=== PATIENT | female | born 1990 | race Caucasian/White ===

== ENCOUNTER 2017-10-24 18:52 | Emergency (ER) | payer OTHER ==
[2017-10-24 20:43] LABS: Absolute Lymphocytes (CBC) 1.5 K/uL (0.7-4.9); Absolute Monocytes 0.5 K/uL (0.1-1.3); Absolute Neutrophil 4.3 K/uL (1.8-8.0); Basophils % 0.4 % (0-1.3); Eosinophils % 1.3 % (0-4.4); Hematocrit 42.2 % (36.0-45.0); MCH 31.9 pg (27.0-35.0); MCV 91.5 fL (80-100); MPV 9.2 fL (7.6-11.3); Monocytes % 7.5 % (3.3-12.3); RBC Red Blood Cell Count 4.61 M/uL (3.86-4.86)
[2017-10-24 20:51] LABS: Potassium 3.6 mEq/L (3.6-5.0)
[2017-10-24 20:57] LABS: Albumin 4.5 g/dL (3.2-5.5); Bilirubin Direct 0.1 mg/dL (0-0.2); Bilirubin Total 0.9 mg/dL (0.3-1.2); Protein, Total 8.3 g/dL (6.0-8.3)
[2017-10-24] MEDS ORDERED: NA CHLORIDE 0.9% 1,000 ML ONE (21:21)
[2017-10-24] MEDS ORDERED: PROMETHAZINE 25 MG/ML VIAL ONE (21:21)
[2017-10-24 21:37] LABS: Urine Blood TRACE (NEG); Urine Glucose NEGATIVE (NEG); Urine Protein 1+ (NEG)
[2017-10-24 21:40] LABS: Urine Bacteria <20 /HPF (<20); Urine Culture Reflex Order NOT NEEDED; Urine Mucus 2+ /HPF (NONE SEEN); Urine RBC <5 /HPF (NONE SEEN)
[2017-10-24] MEDS ORDERED: LIDOCAINE VISCOUS 2% SOLN 15 ML UDC ONE (22:06)
[2017-10-24] MEDS ORDERED: MAGNES/ALUMIN/SIMET 30ML UCUP ONE (22:06)
[2017-10-24] MEDS ORDERED: SUCRALFATE 1 GM TABLET ONE (22:12)
[2017-10-24] MEDS ORDERED: DICYCLOMINE HCL 10 MG CAP ONE (22:12)
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
--- NOTE | 2017-10-24 23:16 | EDPHYS ---
Physician Documentation [facility] Name: Tereza Loza Age: 27 yrs Sex: Female : 1990 Arrival Date: 10/24/2017 Time: 18:55 Bed 18 Private MD: ED Physician Michael Serna HPI: 10/24 19:43 This 27 yrs old Female presents to ER via Ambulatory with complaints of snw Vomiting. 19:43 The patient presents to the emergency department with nausea, vomiting. Onset: The snw symptoms/episode began/occurred suddenly, 4 day(s) ago, and became persistent. Possible causes: flare up of bowel problem, gastritis. The symptoms are aggravated by nothing. Associated signs and symptoms: Pertinent positives: nausea, vomiting. Severity of symptoms: At their worst the symptoms were moderate. The patient has experienced a previous episode, but today's symptoms are worse. It is unknown whether or not the patient has recently seen a physician. 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 - Social history:: Smoking status: Patient/guardian denies using tobacco. ROS: 19:42 Constitutional: Negative for fever, chills, and weight loss, Eyes: Negative for injury, snw pain, redness, and discharge, ENT: Negative for injury, pain, and discharge, Neck: Negative for injury, pain, and swelling, Cardiovascular: Negative for chest pain, palpitations, and edema, Respiratory: Negative for shortness of breath, cough, wheezing, and pleuritic chest pain, Abdomen/GI: positive for epigastric pain, nausea, vomiting, no diarrhea or constipation, Back: Negative for injury and pain, : Negative for injury, bleeding, discharge, and swelling, MS/Extremity: Negative for injury and deformity, Skin: Negative for injury, rash, and discoloration, Psych: Negative for depression, anxiety, suicide ideation, homicidal ideation, and hallucinations. 19:42 Neuro: Positive for dizziness. Exam: 19:41 Constitutional: This is a well developed, well nourished patient who is awake, alert, snw and in no acute distress. Head/Face: Normocephalic, atraumatic. Eyes: Pupils equal round and reactive to light, extra-ocular motions intact. Lids and lashes normal. Conjunctiva and sclera are non-icteric and not injected. Cornea within normal limits. Periorbital areas with no swelling, redness, or edema. ENT: Nares patent. No nasal discharge, no septal abnormalities noted. Tympanic membranes are normal and external auditory canals are clear. Oropharynx with no redness, swelling, or masses, exudates, or evidence of obstruction, uvula midline. Mucous membranes moist. Neck: Trachea midline, no thyromegaly or masses palpated, and no cervical lymphadenopathy. Supple, full range of motion without nuchal rigidity, or vertebral point tenderness. No Meningismus. Chest/axilla: Normal chest wall appearance and motion. Nontender with no deformity. No lesions are appreciated. Cardiovascular: Regular rate and rhythm with a normal S1 and S2. No gallops, murmurs, or rubs. Normal PMI, no JVD. No pulse deficits. Respiratory: Lungs have equal breath sounds bilaterally, clear to auscultation and percussion. No rales, rhonchi or wheezes noted. No increased work of breathing, no retractions or nasal flaring. Back: No spinal tenderness. No costovertebral tenderness. Full range of motion. Skin: Warm, dry with normal turgor. Normal color with no rashes, no lesions, and no evidence of cellulitis. MS/ Extremity: Pulses equal, no cyanosis. Neurovascular intact. Full, normal range of motion. Neuro: Awake and alert, GCS 15, oriented to person, place, time, and situation. Cranial nerves II-XII grossly intact. Motor strength 5/5 in all extremities. Sensory grossly intact. Cerebellar exam normal. Normal gait. 19:41 Abdomen/GI: Inspection: abdomen appears normal, Bowel sounds: normal, Palpation: mild abdominal tenderness, in the epigastric area. Vital Signs: 19:12 BP 137 / 97; Pulse 81; Resp 16; Temp 98; Pulse Ox 98% on R/A; Weight 70.31 kg (R); ak1 Height 5 ft. 5 in. (165.10 cm) (R); Pain 0/10; 21:30 BP 133 / 82; Pulse 101; Resp 18; Pulse Ox 99% on R/A; aj1 22:16 BP 139 / 99; Pulse 73; Resp 18; Pulse Ox 99% ; aj1 22:23 BP 119 / 93; Pulse 70; Resp 16; Temp 98.2; Pulse Ox 100% on R/A; Pain 0/10; ak1 23:24 BP 127 / 81; Pulse 79; Resp 16; Temp 98.2; Pulse Ox 98% on R/A; Pain 0/10; ak1 19:12 Body Mass Index 25.79 (70.31 kg, 165.10 cm) ak1 Procedures: 21:04 Peripheral line: by aseptic technique a peripheral line was placed in the left bicep, rn using u/s guidance, 22g diffusix placed, single attempt, good blood return and flush. MDM: 19:20 Patient medically screened. snw 23:22 Data reviewed: vital signs, nurses notes. Data interpreted: Pulse oximetry: on room air snw is 100 %. Interpretation: normal. Counseling: I had a detailed discussion with the patient and/or guardian regarding: the historical points, exam findings, and any diagnostic results supporting the discharge/admit diagnosis, lab results, the need for outpatient follow up, to return to the emergency department if symptoms worsen or persist or if there are any questions or concerns that arise at home. Special discussion: Based on the patient's Hx, exam, and Dx evaluation, there is no indication for emergent surgery or inpatient Tx. It is understood by the patient/guardian that if the Sx's persist or worsen they need to return immediately for re-evaluation. Based on the history and exam findings, there is no indication for further emergent testing or inpatient evaluation. 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 I discussed with the patient/guardian the need to see the primary care provider for further evaluation of the symptoms. 10/24 19:40 Order name: Basic Metabolic Panel; Complete Time: 21:10 snw 10/24 19:40 Order name: CBC with Diff; Complete Time: 20:49 snw 10/24 19:40 Order name: Hepatic Function; Complete Time: 21:10 snw 10/24 19:40 Order name: Lipase; Complete Time: 21:10 snw 10/24 19:40 Order name: Urine Microscopic Only; Complete Time: 21:42 sn 10/24 21:29 Order name: Urine Dipstick--Ancillary (enter results); Complete Time: 21:42 ma 10/24 19:40 Order name: Urine Test (obtain specimen); Complete Time: 21:19 sn 10/24 19:40 Order name: IV Saline Lock; Complete Time: 21:10 [facility] 10/24 21:29 Order name: Urine --Ancillary (enter results); Complete Time: 21:42 mt 10/24 19:40 Order name: Labs collected and sent; Complete Time: 21:10 [facility] 10/24 19:40 Order name: Urine Dipstick-Ancillary (obtain specimen); Complete Time: 21:19 snw Administered Medications: 21:28 Drug: NS 0.9% 1000 ml Route: IV; Rate: 1 bolus; Site: left upper arm; aj1 21:28 Drug: Phenergan 6.25 mg Route: IVP; Site: left upper arm; aj1 22:23 Drug: GI Cocktail without - (Maalox Suspension 30 ml, Lidocaine Liquid 2 % 15 ak1 ml) Route: PO; 23:24 Follow up: Response: No adverse reaction ak1 22:23 Drug: CarafATE 1 grams Route: PO; ak1 23:24 Follow up: Response: No adverse reaction ak1 22:23 Drug: Bentyl 20 mg Route: PO; ak1 23:24 Follow up: Response: No adverse reaction ak1 Disposition: 10/24/17 23:15 Discharged to Home. Impression: Vomiting, unspecified. - Condition is Stable. - Discharge Instructions: Cyclic Vomiting Syndrome, Nausea and Vomiting, Rehydration, Adult. - Prescriptions for Bentyl 20 mg Oral Tablet - take 1 tablet by ORAL route every 6 hours As needed; 20 tablet. Zofran 4 mg Oral Tablet - take 1 tablet by ORAL route every 12 hours As needed; 20 tablet. - Work release form, Medication Reconciliation Form, Thank You Letter, Antibiotic Education, Prescription Opioid Use form. - Follow up: Private Physician; When: 2 - 3 days; Reason: Recheck today's complaints, Continuance of care, Re-evaluation by your physician. Follow up: Emergency Department; When: As needed; Reason: Worsening of condition. Addendum: 10/26/2017 07:03 Co-signature as Attending Physician, Michael Serna MD. r n Signatures: Dispatcher [employer] EDEthel Rao RN RN aj1 Sarika Fermin, GRANT MANAGER-C GRANT MANAGER-Csnw Michael Serna MD MD rn Krenek, Amber RN RN ak1 Corrections: (The following items were deleted from the chart) 10/24 19:12 19:06 Home Meds: None; ak1 ak1 23:25 23:15 10/24/2017 23:15 Discharged to Home. Impression: Vomiting, unspecified. Condition ak1 is Stable. Forms are Medication Reconciliation Form, Thank You Letter, Antibiotic Education, Prescription Opioid Use. Follow up: Private Physician; When: 2 - 3 days; Reason: Recheck today's complaints, Continuance of care, Re-evaluation by your physician. Follow up: Emergency Department; When: As needed; Reason: Worsening of condition. snw
== END 2017-10-24 23:25 | disposition home or self-care (01) ==
LOC: ER 18:52
PROC: 05HF33Z Insertion of Infusion Device into Left Cephalic Vein, Percutaneous Approach (ICD-10-PCS; principal; 2017-10-24)
DX: R11.10 Vomiting, unspecified (principal); Z98.82 Breast implant status
CPT/HCPCS: 36415; 80048; 80076; 81003; 81015; 81025; 83690; 85025; 96374; 99283; J2550; J7030

== ENCOUNTER 2017-11-25 23:01 | Emergency (ER) | payer OTHER ==
[2017-11-26 01:09] LABS: Urine Blood NEGATIVE (NEG); Urine Glucose NEGATIVE (NEG); Urine Protein 1+ (NEG)
--- NOTE | 2017-11-26 01:28 | EDPHYS ---
Physician Documentation [facility] Name: Tereza Loza Age: 27 yrs Sex: Female : 1990 Arrival Date: 11/25/2017 Time: 23:03 Bed 15 Private MD: ED Physician Manjinder Hobbs HPI: 11/26 00:41 This 27 yrs old Female presents to ER via Ambulatory with complaints of Wasp jmm bite. 00:41 The patient presents with swelling. The complaints affect the lateral aspect of left jmm calf and left mckinley. Context: stung by wasp. Onset: The symptoms/episode began/occurred gradually, 4 day(s) ago. Modifying factors: The symptoms are alleviated by nothing. the symptoms are aggravated by nothing. Associated signs and symptoms: Pertinent positives: swelling, itching. Treatment prior to arrival includes: benadryl cream. This is a 27 year old female with no chronic medical condition that presents to the ED with swelling to the left lower leg after a wasp sting 4 days ago. Patient states she has applied benadryl cream with no relief. Denies fever. . 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 - Social history:: Smoking status: Patient/guardian denies using tobacco. - Ebola Screening: : Patient negative for fever greater than or equal to 101.5 degrees Fahrenheit, and additional compatible Ebola Virus Disease symptoms Patient denies exposure to infectious person. ROS: 11/26 00:41 Constitutional: Negative for fever, chills, and weight loss, Eyes: Negative for injury, jmm pain, redness, and discharge, Cardiovascular: Negative for chest pain, palpitations, and edema, Respiratory: Negative for shortness of breath, cough, wheezing, and pleuritic chest pain, Abdomen/GI: Negative for abdominal pain, nausea, vomiting, diarrhea, and constipation, Back: Negative for injury and pain, : Negative for injury, bleeding, discharge, and swelling. Psych: Negative for depression, anxiety, suicide ideation, homicidal ideation, and hallucinations. MS/extremity: Positive for pain, swelling. Skin: Positive for erythema. All other systems are negative. Exam: 00:41 Head/Face: atraumatic. Chest/axilla: Normal chest wall appearance and motion. jmm Nontender with no deformity. No lesions are appreciated. Cardiovascular: Regular rate and rhythm. No gallops, murmurs, or rubs. Full/Equal distal pulses. Respiratory: Lungs have equal breath sounds bilaterally, clear to auscultation. No rales, rhonchi or wheezes noted. No increased work of breathing, no retractions or nasal flaring. 00:41 Constitutional: The patient appears in no acute distress, alert, awake. 00:41 Musculoskeletal/extremity: swelling noted to the left lower leg, full dorsalis pedis pulse. 00:41 Skin: Appearance: Color: normal in color, erythema noted to the left lower leg, mildly tender to palpation. . 00:41 Neuro: Orientation: is normal, Mentation: is normal, Memory: is normal, Gait: is steady. Vital Signs: 11/25 23:51 BP 133 / 88; Pulse 106; Resp 17; Temp 97.8(T); Pulse Ox 100% on R/A; Weight 71.67 kg; bs1 Height 5 ft. 5 in. (165.10 cm); Pain 0/10; 11/26 00:51 BP 132 / 86; Pulse 99; Resp 16; Pulse Ox 99% on R/A; bs1 01:51 BP 128 / 72; Pulse 96; Resp 16; Temp 98(O); Pulse Ox 99% ; Pain 0/10; bs1 11/25 23:51 Body Mass Index 26.29 (71.67 kg, 165.10 cm) bs1 MDM: 00:00 Patient medically screened. maxime 01:11 Data reviewed: vital signs, nurses notes. Counseling: I had a detailed discussion with venkata the patient and/or guardian regarding: the historical points, exam findings, and any diagnostic results supporting the discharge/admit diagnosis, the presence of at least one elevated blood pressure reading (>120/80) during this emergency department visit, the need for outpatient follow up, to return to the emergency department if symptoms worsen or persist or if there are any questions or concerns that arise at home. 11/26 01:04 Order name: Urine Dipstick--Ancillary (enter results) 11/26 01:04 Order name: Urine --Ancillary (enter results) 11/26 01:04 Order name: Urine Dipstick-Ancillary; Complete Time: 01:10 [facility] 11/26 01:04 Order name: Urine --Ancillary; Complete Time: 01:10 [facility] 11/26 00:39 Order name: Urine Test (obtain specimen); Complete Time: 01:00 [facility] 11/26 00:39 Order name: Urine Dipstick-Ancillary (obtain specimen); Complete Time: 01:00 [facility] Administered Medications: 01:42 Drug: Bactrim (160 mg-800 mg (DS) 1 tablet Route: PO; bs1 02:25 Follow up: Response: No adverse reaction bs1 01:42 Drug: Doxycycline 100 mg Route: PO; bs1 02:25 Follow up: Response: No adverse reaction bs1 Disposition: 11/26/17 01:28 Discharged to Home. Impression: Cellulitis of left lower limb. - Condition is Stable. - Discharge Instructions: Cellulitis. - Prescriptions for Doxycycline Hyclate 100 mg Oral Tablet - take 1 tablet by ORAL route every 12 hours; 20 tablet. Bactrim DS 800- 160 mg Oral Tablet - take 1 tablet by ORAL route every 12 hours for 10 days; 20 tablet. - Medication Reconciliation Form, Thank You Letter, Antibiotic Education, Prescription Opioid Use form. - Follow up: Private Physician; When: 2 - 3 days; Reason: Continuance of care. Addendum: 11/27/2017 10:11 Co-signature as Attending Physician, Manjinder Hobbs MD I agree with the assessment and c morgan plan of care. Signatures: Dispatcher [employer] Manjinder Stevens MD MD cha Mickail, Joel, PA PA Estefania Mckeon, RN RN bs1 Corrections: (The following items were deleted from the chart) 11/26 02:34 01:28 11/26/2017 01:28 Discharged to Home. Impression: Cellulitis of left lower limb. bs1 Condition is Stable. Forms are Medication Reconciliation Form, Thank You Letter, Antibiotic Education, Prescription Opioid Use. Follow up: Private Physician; When: 2 - 3 days; Reason: Continuance of care. [email or web address]
--- NOTE | 2017-11-26 01:28 | ER ---
Nurse's Notes [facility] Name: Tereza Loza Age: 27 yrs Sex: Female : 1990 Arrival Date: 11/25/2017 Time: 23:03 Bed 15 Private MD: Diagnosis: Cellulitis of left lower limb Presentation: 11/25 23:47 Presenting complaint: Patient states: "I was stung by a red wasp 4 days ago and my left bs1 leg keeps getting swollen and red and it itches like crazy.". Transition of care: patient was not received from another setting of care. Onset of symptoms was November 21, 2017. Risk Assessment: Do you want to hurt yourself or someone else? Patient reports no desire to harm self or others. Initial Sepsis Screen: Does the patient meet any 2 criteria? No. Patient's initial sepsis screen is negative. Does the patient have a suspected source of infection? No. Patient's initial sepsis screen is negative. Care prior to arrival: None. 23:47 Method Of Arrival: Ambulatory bs1 23:47 Acuity: MAXI 4 bs1 Triage Assessment: 11/26 02:24 General: Behavior is cooperative. 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 - Social history:: Smoking status: Patient/guardian denies using tobacco. - Ebola Screening: : Patient negative for fever greater than or equal to 101.5 degrees Fahrenheit, and additional compatible Ebola Virus Disease symptoms Patient denies exposure to infectious person. Screenin:52 Abuse screen: Denies threats or abuse. Denies injuries from another. Nutritional bs1 screening: No deficits noted. Tuberculosis screening: No symptoms or risk factors identified. Fall Risk None identified. Assessment: 23:53 General: Appears in no apparent distress. uncomfortable. Pain: Denies pain. Neuro: bs1 Level of Consciousness is awake, alert, obeys commands, Oriented to person, place, time, situation, Appropriate for age Special Order Jeweler are equal bilaterally. Cardiovascular: Denies chest pain, shortness of breath, Heart tones S1 S2 present Capillary refill < 3 seconds Patient's skin is warm and dry. Respiratory: Airway is patent Trachea midline Respiratory effort is even, unlabored, Respiratory pattern is regular, symmetrical, Breath sounds are clear bilaterally. GI: No signs and/or symptoms were reported involving the gastrointestinal system. : No signs and/or symptoms were reported regarding the genitourinary system. EENT: No signs and/or symptoms were reported regarding the EENT system. Derm: patients left leg red, swollen, reports itching Reports itching. Musculoskeletal: Swelling present in left leg. 11/26 01:45 Reassessment: Patient appears in no apparent distress at this time. Patient and/or bs1 family updated on plan of care and expected duration. Pain level reassessed. Patient is alert, oriented x 3, equal unlabored respirations, skin warm/dry/pink. Patient denies pain at this time. 02:10 Reassessment: Patient appears in no apparent distress at this time. Patient and/or bs1 family updated on plan of care and expected duration. Pain level reassessed. Patient is alert, oriented x 3, equal unlabored respirations, skin warm/dry/pink. Patient states feeling better. Vital Signs: 11/25 23:51 BP 133 / 88; Pulse 106; Resp 17; Temp 97.8(T); Pulse Ox 100% on R/A; Weight 71.67 kg; bs1 Height 5 ft. 5 in. (165.10 cm); Pain 0/10; 11/26 00:51 BP 132 / 86; Pulse 99; Resp 16; Pulse Ox 99% on R/A; bs1 01:51 BP 128 / 72; Pulse 96; Resp 16; Temp 98(O); Pulse Ox 99% ; Pain 0/10; bs1 11/25 23:51 Body Mass Index 26.29 (71.67 kg, 165.10 cm) bs1 ED Course: 11/25 23:03 Patient arrived in ED. es 23:37 Estefania Nagy, RN is Primary Nurse. bs1 23:49 Triage completed. bs1 23:52 Patient has correct armband on for positive identification. Call light in reach. Side bs1 rails up X 1. Pulse ox on. NIBP on. 23:53 Arm band placed on right wrist. bs1 23:55 Cristian Dallas [facility] venkata 23:55 Manjinder Hobbs MD is Attending Physician. venkata 11/26 02:24 No provider procedures requiring assistance completed. Patient did not have IV access bs1 during this emergency room visit. Administered Medications: 01:42 Drug: Bactrim (160 mg-800 mg (DS) 1 tablet Route: PO; bs1 02:25 Follow up: Response: No adverse reaction bs1 01:42 Drug: Doxycycline 100 mg Route: PO; bs1 02:25 Follow up: Response: No adverse reaction bs1 Outcome: 01:28 Discharge ordered by . [facility] 02:24 Discharged to home ambulatory. bs1 02:24 Condition: stable 02:24 Discharge instructions given to patient, Instructed on discharge instructions, follow up and referral plans. medication usage, Demonstrated understanding of instructions, follow-up care, medications, Prescriptions given X 2. 02:34 Patient left the ED. bs1 Signatures: Cristian Dallas PA PA jmm Salyer, Edna es Salazar, Brittany, RN RN bs1
[2017-11-26] MEDS ORDERED: DOXYCYCLINE 100 MG CAP PO ONE (01:42)
[2017-11-26] MEDS ORDERED: SMZ./TMP. 800/160 MG TABLET ONE (01:42)
== END 2017-11-26 02:34 | disposition home or self-care (01) ==
LOC: ER 23:01
DX: L03.116 Cellulitis of left lower limb (principal); Z88.8 Allergy status to other drugs, medicaments and biological substances; Z98.82 Breast implant status
CPT/HCPCS: 81003; 81025; 99283

== ENCOUNTER 2017-12-07 05:30 | Emergency (ER) | payer OTHER ==
[2017-12-07] MEDS ORDERED: ONDANSETRON 4 MG (ODT) TAB ONE (06:15)
--- NOTE | 2017-12-07 06:18 | EDPHYS ---
Physician Documentation [facility] Name: Tereza Loza Age: 27 yrs Sex: Female : 1990 Arrival Date: 12/07/2017 Time: 05:36 Bed 5 Private MD: ED Physician Herminio De Souza HPI: 12/07 06:05 This 27 yrs old Female presents to ER via Wheelchair with complaints of kav Abdominal Pain, Nausea/Vomiting. 06:13 The patient presents with abdominal pain that is diffuse. Onset: The symptoms/episode kav began/occurred acutely, 2 day(s) ago. The symptoms do not radiate. Associated signs and symptoms: none. The symptoms are described as crampy. Severity of pain: At its worst the pain was moderate just prior to arrival. The patient has not experienced similar symptoms in the past. The patient has been recently seen by a physician: the patient's primary care provider, with different complaint(s), the patient was seen for Cellulitis 2nd Wasp Sting LLE. Historical: - Allergies: 05:55 Benadryl; aa1 - Home Meds: 05:55 Omeprazole Oral [Active]; suboxone [Active]; aa1 06:42 Adderall XR Oral [Active]; tl2 - PMHx: 05:55 gastritis; aa1 - PSHx: 05:55 ; wisdom teeth; breast implants; aa1 - Immunization history:: Adult Immunizations up to date. - Social history:: Smoking status: Patient/guardian denies using tobacco. - Ebola Screening: : Patient denies exposure to infectious person Patient denies travel to an Ebola-affected area in the 21 days before illness onset. - Family history:: not pertinent. - Hospitalizations: : No recent hospitalization is reported. - History obtained from: . ROS: 06:14 Constitutional: Negative for fever, chills, and weight loss, Eyes: Negative for injury, kav pain, redness, and discharge, ENT: Negative for injury, pain, and discharge, Neck: Negative for injury, pain, and swelling, Cardiovascular: Negative for chest pain, palpitations, and edema, Respiratory: Negative for shortness of breath, cough, wheezing, and pleuritic chest pain, Back: Negative for injury and pain, : Negative for injury, bleeding, discharge, and swelling, MS/Extremity: Negative for injury and deformity, Skin: Negative for injury, rash, and discoloration, Neuro: Negative for headache, weakness, numbness, tingling, and seizure, Psych: Negative for depression, anxiety, suicide ideation, homicidal ideation, and hallucinations, Allergy/Immunology: Negative for hives, rash, and allergies, Endocrine: Negative for neck swelling, polydipsia, polyuria, polyphagia, and marked weight changes, Hematologic/Lymphatic: Negative for swollen nodes, abnormal bleeding, and unusual bruising. 06:14 Abdomen/GI: Positive for abdominal pain, nausea and vomiting, abdominal cramps, Negative for diarrhea, abdominal distension, hematemesis. Exam: 06:14 Constitutional: This is a well developed, well nourished patient who is awake, alert, kav and in no acute distress. Head/Face: Normocephalic, atraumatic. Eyes: Pupils equal round and reactive to light, extra-ocular motions intact. Lids and lashes normal. Conjunctiva and sclera are non-icteric and not injected. Cornea within normal limits. Periorbital areas with no swelling, redness, or edema. ENT: Nares patent. No nasal discharge, no septal abnormalities noted. Tympanic membranes are normal and external auditory canals are clear. Oropharynx with no redness, swelling, or masses, exudates, or evidence of obstruction, uvula midline. Mucous membranes moist. Neck: Trachea midline, no thyromegaly or masses palpated, and no cervical lymphadenopathy. Supple, full range of motion without nuchal rigidity, or vertebral point tenderness. No Meningismus. Chest/axilla: Normal chest wall appearance and motion. Nontender with no deformity. No lesions are appreciated. Cardiovascular: Regular rate and rhythm with a normal S1 and S2. No gallops, murmurs, or rubs. Normal PMI, no JVD. No pulse deficits. Respiratory: Lungs have equal breath sounds bilaterally, clear to auscultation and percussion. No rales, rhonchi or wheezes noted. No increased work of breathing, no retractions or nasal flaring. Back: No spinal tenderness. No costovertebral tenderness. Full range of motion. Skin: Warm, dry with normal turgor. Normal color with no rashes, no lesions, and no evidence of cellulitis. MS/ Extremity: Pulses equal, no cyanosis. Neurovascular intact. Full, normal range of motion. Neuro: Awake and alert, GCS 15, oriented to person, place, time, and situation. Cranial nerves II-XII grossly intact. Motor strength 5/5 in all extremities. Sensory grossly intact. Cerebellar exam normal. Normal gait. Psych: Awake, alert, with orientation to person, place and time. Behavior, mood, and affect are within normal limits. 06:14 Abdomen/GI: Inspection: abdomen appears normal, Bowel sounds: hyperactive, in all quadrants, Palpation: abdomen is soft and non-tender. Vital Signs: 05:55 BP 147 / 94; Pulse 87; Resp 18; Temp 98.1; Pulse Ox 100% on R/A; Weight 72.57 kg; aa1 Height 5 ft. 5 in. (165.10 cm); 05:55 Body Mass Index 26.63 (72.57 kg, 165.10 cm) aa1 MDM: 06:03 Medical screening is not applicable. ka 06:14 Data reviewed: vital signs, nurses notes. [facility] Administered Medications: 06:18 Drug: Zofran 4 mg Route: PO; tl2 06:41 Follow up: Response: No adverse reaction; Nausea is decreased tl2 Disposition: 06:48 Co-signature as Attending Physician, Herminio De Souza MD. Disposition: 12/07/17 06:17 Discharged to Home. Impression: Viral and other specified intestinal infections. - Condition is Stable. - Discharge Instructions: Viral Infections, [id number]. - Prescriptions for Zofran 4 mg Oral Tablet - take 1 tablet by ORAL route every 12 hours As needed; 20 tablet. - Medication Reconciliation Form, Thank You Letter, Antibiotic Education, Prescription Opioid Use form. - Follow up: Private Physician; When: 1 - 2 days; Reason: If symptoms return, Recheck today's complaints, Continuance of care, Re-evaluation by your physician. - Problem is new. - Symptoms have improved. - Notes: ensure adequate hydration with 1/2 water and 1/2 gatorade and/or pedialyte ensure good hand hygiene Signatures: Ella Florence RN RN aa1 Gia Michelle, COLLATOR COLLATOR Cierra Cantrell RN RN tl2 Herminio De Souza MD MD Corrections: (The following items were deleted from the chart) 06:42 06:17 12/07/2017 06:17 Discharged to Home. Impression: Viral and other specified tl2 intestinal infections. Condition is Stable. Forms are Medication Reconciliation Form, Thank You Letter, Antibiotic Education, Prescription Opioid Use. Follow up: Private Physician; When: 1 - 2 days; Reason: If symptoms return, Recheck today's complaints, Continuance of care, Re-evaluation by your physician. Problem is new. Symptoms have improved. kav
--- NOTE | 2017-12-07 06:18 | ER ---
Nurse's Notes [facility] Name: Tereza Loza Age: 27 yrs Sex: Female : 1990 Arrival Date: 12/07/2017 Time: 05:36 Bed 5 Private MD: Diagnosis: Viral and other specified intestinal infections Presentation: 12/07 05:53 Presenting complaint: Patient states: N/V since last night. reports all 4 family aa1 members in household have been sick with same symptoms. Transition of care: patient was not received from another setting of care. Onset of symptoms was December 06, 2017. Risk Assessment: Do you want to hurt yourself or someone else? Patient reports no desire to harm self or others. Initial Sepsis Screen: Does the patient meet any 2 criteria? No. Patient's initial sepsis screen is negative. Does the patient have a suspected source of infection? No. Patient's initial sepsis screen is negative. Care prior to arrival: None. 05:53 Method Of Arrival: Wheelchair aa1 05:53 Acuity: MAXI 3 aa1 Triage Assessment: 05:55 General: Appears in no apparent distress. uncomfortable, Behavior is calm, cooperative, aa1 appropriate for age. Historical: - Allergies: 05:55 Benadryl; aa1 - Home Meds: 05:55 Omeprazole Oral [Active]; suboxone [Active]; aa1 06:42 Adderall XR Oral [Active]; tl2 - PMHx: 05:55 gastritis; aa1 - PSHx: 05:55 ; wisdom teeth; breast implants; aa1 - Immunization history:: Adult Immunizations up to date. - Social history:: Smoking status: Patient/guardian denies using tobacco. - Ebola Screening: : Patient denies exposure to infectious person Patient denies travel to an Ebola-affected area in the 21 days before illness onset. - Family history:: not pertinent. - Hospitalizations: : No recent hospitalization is reported. - History obtained from: . Screenin:00 Abuse screen: Denies threats or abuse. Nutritional screening: No deficits noted. tl2 Tuberculosis screening: No symptoms or risk factors identified. Fall Risk None identified. Assessment: 06:00 General: Appears in no apparent distress. uncomfortable, Behavior is calm, cooperative, tl2 appropriate for age. Pain: Denies pain. Neuro: Level of Consciousness is awake, alert, obeys commands. Respiratory: Airway is patent Respiratory effort is even, unlabored, Respiratory pattern is regular, symmetrical. Respiratory:. GI: Bowel sounds present X 4 quads. Abd is soft and non tender Reports nausea, vomiting. : No signs and/or symptoms were reported regarding the genitourinary system. Derm: Skin is pink, warm \T\ dry. Vital Signs: 05:55 BP 147 / 94; Pulse 87; Resp 18; Temp 98.1; Pulse Ox 100% on R/A; Weight 72.57 kg; aa1 Height 5 ft. 5 in. (165.10 cm); 05:55 Body Mass Index 26.63 (72.57 kg, 165.10 cm) aa1 ED Course: 05:36 Patient arrived in ED. am2 05:54 Triage completed. aa1 05:55 Arm band placed on right wrist. aa1 06:00 Patient has correct armband on for positive identification. tl2 06:00 No provider procedures requiring assistance completed. Patient did not have IV access tl2 during this emergency room visit. 06:02 Gia Michelle FNP is [facility]. kav 06:02 Herminio De Souza MD is Attending Physician. kav 06:18 Cierra Gaitan, DANIEL is Primary Nurse. tl2 Administered Medications: 06:18 Drug: Zofran 4 mg Route: PO; tl2 06:41 Follow up: Response: No adverse reaction; Nausea is decreased tl2 Outcome: 06:17 Discharge ordered by . kav 06:41 Discharged to home ambulatory. tl2 06:41 Condition: stable 06:41 Discharge instructions given to patient, Instructed on discharge instructions, follow up and referral plans. medication usage, Demonstrated understanding of instructions, follow-up care, medications, Prescriptions given X 1. 06:42 Patient left the ED. tl2 Signatures: Ella Florence RN RN aa1 Gia Michelle FNP FNP kav Knox, Taylor, RN RN tl2 Justine Mcelroy am2
== END 2017-12-07 06:42 | disposition home or self-care (01) ==
LOC: ER 05:30
DX: A08.39 Other viral enteritis (principal); R10.9 Unspecified abdominal pain; Z88.8 Allergy status to other drugs, medicaments and biological substances
CPT/HCPCS: 99283

== ENCOUNTER 2018-03-25 13:49 | Emergency (ER) | payer OTHER ==
--- NOTE | 2018-03-25 15:58 | EDPHYS ---
Physician Documentation [facility] Name: Tereza Loza Age: 27 yrs Sex: Female : 1990 Arrival Date: 03/25/2018 Time: 13:52 Bed 10 Private MD: ED Physician Jil Rolon HPI: 03/25 15:41 This 27 yrs old Female presents to ER via Ambulatory with complaints of kb Insect Bite. 15:41 The patient's rash thought to be caused by an unknown cause. The rash is located on the kb palmar aspect of right forearm. The rash can be described as vesicular. Onset: The symptoms/episode began/occurred this morning. Associated signs and symptoms: Pertinent positives: burning sensation, Pertinent negatives: difficulty breathing, fever, itching, nausea, Pain swelling of lips, swelling of throat, swelling of tongue, vomiting, wheezing. Severity of symptoms: At their worst the symptoms were mild moderate in the emergency department the symptoms are unchanged. The patient has not experienced similar symptoms in the past. The patient has not recently seen a physician. TESTING AND REGULATING CHIEF: 14:06 LMP 03/01/2018 Historical: - Allergies: 14:06 Benadryl; hj - Home Meds: 14:06 Adderall XR Oral [Active]; Suboxone [Active]; hj - PMHx: 14:06 gastritis; hj - PSHx: 14:06 ; wisdom teeth; breast implants; hj - Immunization history:: Adult Immunizations not up to date. - Social history:: Smoking status: Patient/guardian denies using tobacco, Patient/guardian denies using alcohol. - Ebola Screening: : Patient negative for fever greater than or equal to 101.5 degrees Fahrenheit, and additional compatible Ebola Virus Disease symptoms Patient denies exposure to infectious person Patient denies travel to an Ebola-affected area in the 21 days before illness onset. ROS: 16:24 Constitutional: Negative for fever, chills, and weight loss, Cardiovascular: Negative kb for chest pain, palpitations, and edema, Respiratory: Negative for shortness of breath, cough, wheezing, and pleuritic chest pain, Abdomen/GI: Negative for abdominal pain, nausea, vomiting, diarrhea, and constipation, MS/Extremity: Negative for injury and deformity, Neuro: Negative for headache, weakness, numbness, tingling, and seizure. 16:24 Skin: Positive for rash, of the palmar aspect of right forearm. Exam: 16:24 Constitutional: This is a well developed, well nourished patient who is awake, alert, kb and in no acute distress. Head/Face: Normocephalic, atraumatic. Chest/axilla: Normal chest wall appearance and motion. Nontender with no deformity. No lesions are appreciated. Cardiovascular: Regular rate and rhythm with a normal S1 and S2. No gallops, murmurs, or rubs. Normal PMI, no JVD. No pulse deficits. Respiratory: Lungs have equal breath sounds bilaterally, clear to auscultation and percussion. No rales, rhonchi or wheezes noted. No increased work of breathing, no retractions or nasal flaring. Abdomen/GI: Soft, non-tender, with normal bowel sounds. No distension or tympany. No guarding or rebound. No evidence of tenderness throughout. MS/ Extremity: Pulses equal, no cyanosis. Neurovascular intact. Full, normal range of motion. Neuro: Awake and alert, GCS 15, oriented to person, place, time, and situation. Cranial nerves II-XII grossly intact. Motor strength 5/5 in all extremities. Sensory grossly intact. Cerebellar exam normal. Normal gait. 16:24 Skin: rash a moderate rash is noted, rash can be described as vesicular, on the palmar aspect of right forearm. Vital Signs: 14:06 BP 118 / 82; Pulse 88; Resp 18; Temp 98.2(O); Pulse Ox 100% on R/A; Weight 68.95 kg; hj Height 5 ft. 5 in. (165.10 cm); Pain 1/10; 16:18 BP 117 / 80; Pulse 84; Resp 18; Pulse Ox 100% on R/A; hj 14:06 Body Mass Index 25.30 (68.95 kg, 165.10 cm) MDM: 14:49 Patient medically screened. kb 15:57 Data reviewed: vital signs, nurses notes. Data interpreted: Pulse oximetry: on room air kb is 100 %. Interpretation: normal. Counseling: I had a detailed discussion with the patient and/or guardian regarding: the historical points, exam findings, and any diagnostic results supporting the discharge/admit diagnosis, the need for outpatient follow up, a whittling room operator, a family practitioner, to return to the emergency department if symptoms worsen or persist or if there are any questions or concerns that arise at home. 03/25 15:13 Order name: Wound Culture kb Administered Medications: 15:58 Drug: Bactrim (160 mg-800 mg (DS) 1 tablet Route: PO; hj 16:18 Follow up: Response: No adverse reaction hj Disposition: 03/26 10:39 Co-signature as Attending Physician, Jil Rolon MD. ma2 Disposition: 03/25/18 15:57 Discharged to Home. Impression: Rash and other nonspecific skin eruption. - Condition is Stable. - Discharge Instructions: Rash, [id number]. - Prescriptions for Bactrim DS 800- 160 mg Oral Tablet - take 1 tablet by ORAL route every 12 hours for 7 days; 14 tablet. - Medication Reconciliation Form, Thank You Letter, Antibiotic Education, Prescription Opioid Use form. - Follow up: Emergency Department; When: As needed; Reason: Worsening of condition. Follow up: Private Physician; When: 2 - 3 days; Reason: Recheck today's complaints, Continuance of care, Re-evaluation by your physician. Signatures: Dispatcher [employer] EDMS Violeta Wooten, OSBALDO-C KEYCASE ASSEMBLER-Jose Armando Truong RN RN hj Alzahri, Mohammad, MD MD ma2 Corrections: (The following items were deleted from the chart) 03/25 16:19 15:57 03/25/2018 15:57 Discharged to Home. Impression: Rash and other nonspecific skin hj eruption. Condition is Stable. Forms are Medication Reconciliation Form, Thank You Letter, Antibiotic Education, Prescription Opioid Use. Follow up: Emergency Department; When: As needed; Reason: Worsening of condition. Follow up: Private Physician; When: 2 - 3 days; Reason: Recheck today's complaints, Continuance of care, Re-evaluation by your physician. kb
--- NOTE | 2018-03-25 15:58 | ER ---
Nurse's Notes [facility] Name: Tereza Loza Age: 27 yrs Sex: Female : 1990 Arrival Date: 03/25/2018 Time: 13:52 Bed 10 Private MD: Diagnosis: Rash and other nonspecific skin eruption Presentation: 03/25 14:03 Presenting complaint: Patient states: when i woke up 4 am today, my R arm is swollen hj and it has a fluid blister on it; denies fever and chills;. Transition of care: patient was not received from another setting of care. Onset of symptoms was March 25, 2018. Risk Assessment: Do you want to hurt yourself or someone else? Patient reports no desire to harm self or others. Initial Sepsis Screen: Does the patient meet any 2 criteria? No. Patient's initial sepsis screen is negative. Does the patient have a suspected source of infection? No. Patient's initial sepsis screen is negative. Care prior to arrival: None. 14:03 Method Of Arrival: Ambulatory 14:03 Acuity: MAXI 4 Triage Assessment: 14:05 Bite description: bite sustained to right arm by an unknown animal, animal information: vaccination(s) is unknown. General: Appears in no apparent distress. uncomfortable, Behavior is calm, cooperative, appropriate for age. Pain: Complains of pain in right arm Pain currently is 1 out of 10 on a pain scale. [employer] ARCHITECT: 14:06 LMP 03/01/2018 Historical: - Allergies: 14:06 Benadryl; - Home Meds: 14:06 Adderall XR Oral [Active]; Suboxone [Active]; - PMHx: 14:06 gastritis; - PSHx: 14:06 ; wisdom teeth; breast implants; hj - Immunization history:: Adult Immunizations not up to date. - Social history:: Smoking status: Patient/guardian denies using tobacco, Patient/guardian denies using alcohol. - Ebola Screening: : Patient negative for fever greater than or equal to 101.5 degrees Fahrenheit, and additional compatible Ebola Virus Disease symptoms Patient denies exposure to infectious person Patient denies travel to an Ebola-affected area in the 21 days before illness onset. Screenin:04 Abuse screen: Denies threats or abuse. Denies injuries from another. Nutritional hj screening: No deficits noted. Tuberculosis screening: No symptoms or risk factors identified. Fall Risk None identified. Assessment: 14:05 Derm: Skin has blisters on R arm Skin is. hj Vital Signs: 14:06 BP 118 / 82; Pulse 88; Resp 18; Temp 98.2(O); Pulse Ox 100% on R/A; Weight 68.95 kg; hj Height 5 ft. 5 in. (165.10 cm); Pain 1/10; 16:18 BP 117 / 80; Pulse 84; Resp 18; Pulse Ox 100% on R/A; hj 14:06 Body Mass Index 25.30 (68.95 kg, 165.10 cm) hj ED Course: 13:52 Patient arrived in ED. rg4 14:04 Triage completed. hj 14:05 Arm band placed on left wrist. hj 14:05 Patient has correct armband on for positive identification. Bed in low position. Call hj light in reach. Side rails up X 1. Side rails up X2. 14:49 Violeta Wooten FNP-C is [facility]. kb 14:49 Jil Rolon MD is Attending Physician. kb 15:05 Jose Armando Lanier RN is Primary Nurse. hj 16:18 No provider procedures requiring assistance completed. Patient did not have IV access hj during this emergency room visit. Administered Medications: 15:58 Drug: Bactrim (160 mg-800 mg (DS) 1 tablet Route: PO; hj 16:18 Follow up: Response: No adverse reaction hj Outcome: 15:57 Discharge ordered by MD. kb 16:18 Discharged to home ambulatory. hj 16:18 Condition: stable 16:18 Discharge instructions given to patient, Instructed on discharge instructions, follow up and referral plans. medication usage, wound care, Demonstrated understanding of instructions, follow-up care, medications, wound care, Prescriptions given X 1. 16:19 Patient left the ED. Signatures: Violeta Wooten FNP-C FNP-Ckb Joaquin, Henry, DANIEL RN Enedina Edmondson rg4 Corrections: (The following items were deleted from the chart) 14:08 14:06 Pulse 88bpm; Resp 18bpm; Pulse Ox 100% RA; Temp 98.2F Oral; 68.95 kg; Height 5 hj ft. 5 in.; BMI: 25.2; Pain 1/; hj
[2018-03-25] MEDS ORDERED: SMZ./TMP. 800/160 MG TABLET ONE (16:19)
== END 2018-03-25 16:19 | disposition home or self-care (01) ==
LOC: ER 13:49
DX: R21 Rash and other nonspecific skin eruption (principal); Z88.8 Allergy status to other drugs, medicaments and biological substances; Z98.82 Breast implant status
CPT/HCPCS: 87070; 87205; 99283